=== PATIENT | female | born 1930 | race Caucasian/White ===

== ENCOUNTER 2017-12-13 11:49 | Emergency (ER) | payer OTHER ==
[~2017-12-13 11:49] MED LIST: AMLODIPINE BESYL5 M1 PO; AUGMENTIN 875-1 EACH PO; CALCIUM + VITA1 EAC1 PO; COZAAR100 M1 PO; KEY-E400 IU PO; URSODIOL300 M1 PO
[2017-12-13 12:24] LABS: ABSOLUTE BASOPHIL COUNT 0 /CUMM (0.0-0.2); ABSOLUTE EOSINOPHIL COUNT 0 /CUMM (0.0-0.7); ABSOLUTE LYMPH COUNT 1.2 /CUMM (1.2-3.4); ABSOLUTE MONOCYTE COUNT 0.5 /CUMM (0.10-0.60); BASOPHIL % 0.5 % (0.0-2.0); GRANULOCYTE % 53.8 % (42.2-75.2); MEAN CORPUSCULAR HGB 29.2 PG (27.0-31.0); MEAN CORPUSCULAR HGB CONC 34.8 G/DL (33.0-37.0); MEAN CORPUSCULAR VOLUME 84.1 FL (81.0-99.0); MEAN PLATELET VOLUME 9.1 FL (7.4-10.4); PLATELET COUNT 157 /CUMM (130-400); RBC DISTRIBUTION WIDTH 14.2 % (11.5-14.5); RED BLOOD CELL CT 4.16 /CUMM (4.20-5.40); WHITE BLOOD CELL COUNT 3.8 /CUMM (4.8-10.8)
--- NOTE | 2017-12-13 14:11 | CT SCAN REPORT ---
EXAMINATION: CT HEAD WITHOUT CONTRAST CLINICAL INFORMATION: Syncope. COMPARISON: None. TECHNIQUE: Contiguous axial imaging was performed from the skull base to vertex without intravenous administration of contrast. DLP: 600 mGy-cm FINDINGS: There is no evidence of acute intracranial hemorrhage or territorial infarction. No abnormal mass effect or midline shift is seen. Kaplan to white matter differentiation is well preserved. No extra-axial fluid collections are identified. There is mild commensurate prominence of the ventricles and sulci consistent with mild diffuse volume loss. There are patchy areas of low attenuation in the periventricular and subcortical white matter, consistent with chronic microvascular ischemic changes. There are lacunar infarcts in the basal ganglia bilaterally. There are relatively extensive atheromatous calcifications of the bilateral cavernous internal carotid arteries in the right vertebral artery. There have been bilateral lens extractions. There are no acute osseous findings. There are degenerative changes of the left temporomandibular joint. The soft tissues are unremarkable. The mastoid air cells and visualized portions of the paranasal sinuses are well aerated. IMPRESSION: 1. There are no acute bleeds or territorial infarcts. No masses are demonstrated. 2. There is diffuse volume loss and there are chronic microvascular ischemic changes.
--- NOTE | 2017-12-13 16:18 | ED GENERAL ADULT ---
History of Present Illness General Chief Complaint: General Adult Stated Complaint: +LOC & WEAKNESS S/P BM 30 MIN AGO Source: patient Exam Limitations: no limitations Vital Signs & Intake/Output Vital Signs & Intake/Output Vital Signs Date Time Temp Pulse Resp B/P B/P Pulse O2 O2 Flow FiO2 Mean Ox Delivery Rate 12/13 1623 97.0 84 22 157/70 98 12/13 1156 97.4 94 16 151/79 95 Room Air Allergies Coded Allergies: No Known Allergies (04/28/17) Reconcile Medications Amlodipine Besylate 5 MG TABLET 1 TAB PO DAILY HTN (Reported) Calcium Carbonate/Vitamin D3 (Calcium + Vitamin D Tablet) 600 MG-200 TABLET 1 TAB PO DAILY VITAMIN SUPPORT (Reported) Losartan (Cozaar) 100 MG TABLET 1 TAB PO DAILY HTN (Reported) Ursodiol 300 MG CAPSULE 1 CAP PO 4 TIMES/DAY CHOLESTEROL (Reported) Triage Note: PT TO ED WITH C/O SYNCOPAL EPISODE TODAY WHILE SITTING ON TOILET HAVING A BM. REPORTS SHE FELL TO THE FLOOR ON HER LEFT SIDE. DOES NOT BELIEVE SHE HIT HER HEAD. PTS ASSISTED PT UP AFTER INCIDENT. STATES HAS FELT GENERALIZED WEAKNESS FOR THE PAST COUPLE DAYS. Triage Nurses Notes Reviewed? yes Onset: Abrupt Duration: minute(s): Timing: single episode today HPI: 87-year-old female with a history of hypoglycemia, hypertension, primary biliary cirrhosis, bronchiectasis presenting status post syncopal episode just prior to arrival. Patient reports that she was sitting on the toilet having a bowel movement, denies straining, when she began to feel diaphoretic and shaky. Denies any lightheadedness, dizziness, chest pain, shortness of breath, nausea, vomiting, diarrhea at the time of the event. States that she had a syncopal episode and fell forward, striking the left side of her body on the ground. Is unsure if she struck her head. Not on any anticoagulation. States she had LOC episode. Patient states that she has had syncopal episodes in the past in the setting of hypoglycemia, but that she had eaten a bowl of oatmeal with fruit just prior to the episode. (Eri Vora) Past History Travel History Traveled to [place] past 21 day No Medical History Any Pertinent Medical History? see below for history Cardiovascular: htn Respiratory: BRONCHIECTASIS Gastrointestinal: PRIMARY BILIARY CIRRHOSIS Surgical History Surgical History: non-contributory Psychosocial History What is your primary language Yoruba Tobacco Use: Never used Family History Hx Contributory? No (Eri Vora) Review of Systems Review of Systems Constitutional: Reports: see HPI. EENTM: Reports: no symptoms. Respiratory: Reports: no symptoms. Cardiovascular: Reports: no symptoms. GI: Reports: no symptoms. Genitourinary: Reports: no symptoms. Musculoskeletal: Reports: no symptoms. Skin: Reports: no symptoms. Neurological/Psychological: Reports: see HPI. Hematologic/Endocrine: Reports: no symptoms. Immunologic/Allergic: Reports: no symptoms. All Other Systems: Reviewed and Negative (Eri Vora) Physical Exam Physical Exam General Appearance: well developed/nourished, no apparent distress, alert, awake , comfortable Head: atraumatic, normal appearance Eyes: Bilateral: normal appearance, PERRL, EOMI. Ears, Nose, Throat: normal ENT inspection, mild edema to the upper lip with a mucosal abrasion to the inner upper lip, no lip lacerations, no missing or loose teeth Neck: normal inspection, full range of motion, no midline tenderness Respiratory: normal breath sounds, chest non-tender, lungs clear Cardiovascular: regular rate/rhythm Gastrointestinal: soft, non-tender Back: normal inspection, normal range of motion, no vertebral tenderness Extremities: normal inspection, normal range of motion Neurologic/Psych: awake, alert, oriented x 3, normal gait, normal mood/affect Skin: intact, normal color, warm/dry Core Measures ACS in differential dx? No CVA/TIA Diagnosis: No Sepsis Present: No Sepsis Focused Exam Completed? No (Eri Vora) Progress Differential Diagnoses I considered the following diagnoses in my evaluation of the patient: [ Hypoglycemia versus hypotension versus vasovagal versus cardiac arrhythmia, low concern for ACS versus acute neurologic event] Plan of Care: Orders Procedure Date/time Status URINALYSIS 12/13 1619 Complete MISTAKE 12/13 1159 Active TROPONIN LEVEL 12/13 1159 Complete COMPREHENSIVE METABOLIC PANEL 12/13 1159 Complete CREATINE PHOSPHOKINASE 12/13 1159 Complete CBC WITHOUT DIFFERENTIAL 12/13 1159 Complete EKG 12/13 1159 Active Laboratory Tests 12/13/17 1645: Urine Color STRAW, Urine Clarity CLEAR, Urine pH 6.5, Ur Specific [place] <= 1.005, Urine Protein NEG, Urine Ketones NEG, Urine Nitrite NEG, Urine Bilirubin NEG, Urine Urobilinogen 0.2, Ur Leukocyte Esterase NEG, Ur Microscopic EXAM NOT REQUIRED, Urine Hemoglobin NEG, Urine Glucose NEG 12/13/17 1212: Anion Gap 11, Estimated GFR > 60, BUN/Creatinine Ratio 17.5, Glucose 94, Calcium 8.9, Total Bilirubin 0.8, AST 54 H, ALT 42, Alkaline Phosphatase 155 H, Creatine Kinase 60, Troponin I < 0.01, Total Protein 8.0, Albumin 3.5, Globulin 4.5 H, Albumin/Globulin Ratio 0.8 L, CBC w Diff NO MAN DIFF REQ, RBC 4.16 L, MCV 84.1, MCH 29.2, MCHC 34.8, RDW 14.2, MPV 9.1, Gran % 53.8, Lymphocytes % 31.4, Monocytes % 13.3 H, Eosinophils % 1.0, Basophils % 0.5, Absolute Granulocytes 2.0, Absolute Lymphocytes 1.2, Absolute Monocytes 0.5, Absolute Eosinophils 0, Absolute Basophils 0 Labs unremarkable EKG is nonischemic, troponin negative CT head and C-spine unremarkable for acute injury Patient feels back to baseline and is asymptomatic Suspect syncopal episode in the setting of hypoglycemia versus vasovagal Instructed to follow-up with her PMD for reevaluation and given strict return precautions Initial ED EKG: NSR, no ST T wave changes (Eri Vora) Departure Departure Disposition: HOME OR SELF CARE Condition: Stable Clinical Impression Primary Impression: Syncope Secondary Impressions: Contusion, lip Referrals: Charlotte KUMAR,Duran Ceballos (PCP/Family) Additional Instructions: Follow-up with your primary care provider for reevaluation. Return to the emergency department for any new or worsening symptoms. Departure Forms: Customer Survey General Discharge Information (Eri Vora) PA/FRONT DESK HOST Co-Sign Statement Statement: ED Attending supervision documentation- [X] I saw and evaluated the patient. I have also reviewed all the pertinent lab results and diagnostic results. I agree with the findings and the plan of care as documented in the PA's/FRONT DESK HOST's documentation. Patient presents for evaluation of a syncopal episode while on the toilet. Patient has a history of intermittent hypotensive episodes along with hypoglycemic episodes. Physical examination reveals a nonfocal neurologic examination, clear lung sounds bilaterally but a systolic murmur clinically consistent with aortic stenosis. I have recommended patient follow-up with Dr. Lopez for the possibility of worsening aortic stenosis as well as her primary care physician for reevaluation. [] I have reviewed the ED Record and agree with the PA's/FRONT DESK HOST's documentation. [] Additions or exceptions (if any) to the PAs/FRONT DESK HOST's note and plan are summarized below: [] (Nettie KUMAR,Herminio Koch) Critical Care Note Critical Care Note Critical Care Time: non-applicable (Haritha PENG,Eri)
--- NOTE | 2017-12-13 17:31 | CT SCAN REPORT ---
EXAMINATION: CT CERVICAL SPINE WITHOUT CONTRAST CLINICAL INFORMATION: Fall. COMPARISON: None available. TECHNIQUE: A multidetector CT acquisition of the cervical spine is obtained without contrast. FINDINGS: Partially imaged leftward convex curvature of the thoracic spine. Mild degenerative anterior subluxation of C6 on C7. Vertebral body heights are maintained. There is moderate to severe disc volume loss at C4-C5, C5-C6, and C6-C7. No acute fractures and no acute subluxations. Multilevel hypertrophic facet arthropathy. Hypertrophic degenerative changes involving the craniocervical junction. Atherosclerotic calcification involving the carotid bifurcations bilaterally. There is no prevertebral soft tissue swelling. Calcification at the lung apices bilaterally. IMPRESSION: No acute osseous findings.
[2017-12-13 18:18] VITALS: BP 140/70
== END 2017-12-13 18:17 ==
LOC: ERH 11:49
PROVIDERS: Physician Assistant
DX: S00.531A Contusion of lip, initial encounter (principal); R55 Syncope and collapse; I10 Essential (primary) hypertension; W18.11XA Fall from or off toilet without subsequent striking against object, initial encounter
CPT/HCPCS: 81003; 93005; 93010